=== PATIENT | male | born 1995 | race Two or more races ===

== ENCOUNTER 2022-08-27 10:51 | Emergency (ER) | payer SELFPAY ==
[~2022-08-27] VITALS: Ht 175.3 cm; Wt 71.2 kg
--- NOTE | 2022-08-27 11:10 | NUR ---
BIBS C/O LEFT FOREARM LACERATION S/P "CUT WITH RAZOR". TDAP UP TO DATE. AMBULATORY, PLACED IN BED.
--- NOTE | 2022-08-27 11:30 | NUR ---
L FOREARM LACERATION SUTURE DONE BY MD WITH 3-0 ETHILON AND LIDOCAINE 1%.
--- NOTE | 2022-08-27 12:00 | NUR ---
Patient discharged to home in stable condition. Written and verbal after care instructions given. Patient verbalizes understanding of instruction.
[2022-08-27 13:25] VITALS: BP 125/80
== END 2022-08-27 12:00 | disposition home or self-care (01) ==
LOC: ER 11:01
DX: S51.812A Laceration without foreign body of left forearm, initial encounter (principal); W26.8XXA Contact with other sharp object(s), not elsewhere classified, initial encounter; Y93.89 Activity, other specified; Y92.89 Other specified places as the place of occurrence of the external cause; Y99.8 Other external cause status
CPT/HCPCS: 99282; 12002; A6403